=== PATIENT | male | born 2000 | race Hispanic/Latino ===

== ENCOUNTER 2021-06-06 17:54 | Emergency (ER) | payer BC, OTHER ==
[~2021-06-06] VITALS: Ht 172.7 cm; Wt 65.0 kg
[2021-06-06 22:27] VITALS: BP 102/76
[2021-06-06 22:30] VITALS: BP 107/68
[2021-06-06 22:45] VITALS: BP 106/67
[2021-06-06 23:00] VITALS: BP 110/72
== END 2021-06-06 23:30 | disposition home or self-care (01) | DRG 153 ==
LOC: ED 17:54
DX: J06.9 Acute upper respiratory infection, unspecified (principal); Z20.822 Contact with and (suspected) exposure to COVID-19